=== PATIENT | male | born 1970 | race Caucasian/White ===

== ENCOUNTER 2016-06-01 12:43 | Inpatient (IN) | payer OTHER ==
[2016-06-01 14:01] VITALS: BMI 23.4
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
[2016-06-01] MEDS ORDERED: METHADONE HCL 10 MG TABLET (FOR DETOX USE ONLY) PO ONE ×2 (15:24→23:00)
[2016-06-01] MEDS ORDERED: MAGNESIUM CITRATE 300 ML BOTTLE PO PRN (15:24)
[2016-06-01] MEDS ORDERED: LOPERAMIDE HCL 2 MG CAPSULE PO PRN (15:24)
[2016-06-01] MEDS ORDERED: MENTHOL/PHENOL 1 EACH UD MM PRN (15:24)
[2016-06-01] MEDS ORDERED: guaiFENesin/D-METHORPHAN HB 10 ML UNIT-DOSE CUPS PO PRN (15:24)
[2016-06-01] MEDS ORDERED: MAGNESIUM HYDROX 2400MG/30ML ORAL SUSPENSION 30 ML CUP PO PRN (15:24)
[2016-06-01] MEDS ORDERED: MAG HYDROX/AL HYDROX/SIMETH 30 ML UNIT-DOSE CUP PO PRN (15:24)
[2016-06-01] MEDS: diazePAM 5 MG TABLET PO PRN ×2 (16:58→22:04)
[2016-06-01 17:47] LABS: URINE APPEARANCE CLEAR; URINE BILIRUBIN NEGATIVE (NEGATIVE); URINE BLOOD NEGATIVE (NEGATIVE); URINE COLOR STRAW; URINE GLUCOSE (UA) NEGATIVE (NEGATIVE); URINE KETONE NEGATIVE (NEGATIVE); URINE LEUK ESTERASE NEGATIVE (NEGATIVE); URINE NITRITE NEGATIVE (NEGATIVE); URINE PROTEIN NEGATIVE (NEGATIVE); URINE UROBILINOGEN NEGATIVE E.U./dl (0.2-1.0)
[2016-06-01] MEDS: THIAMINE HCL 100 MG TABLET (FP) PO SCH (22:04)
[2016-06-02] MEDS: hydrOXYzine PAMOATE 50 MG CAPSULE (FP) PO PRN ×2 (00:39→05:28)
[2016-06-02] MEDS: diazePAM 5 MG TABLET PO PRN ×4 (02:54→22:09)
[2016-06-02] MEDS ORDERED: METHADONE HCL 10 MG TABLET (FOR DETOX USE ONLY) PO ONE (10:00)
[2016-06-02 10:03] LABS: MCH 29.9 pg (25.7-33.7); MCHC 33.7 g/dl (32.0-35.9); MEAN CELL VOLUME 88.9 fl (80-96); MEAN PLT VOLUME 7.5 fl (7.5-11.1); PLATELET COUNT 234 K/MM3 (134-434); RDW 13.6 % (11.9-15.9); WHITE BLOOD COUNT 5.6 K/mm3 (4.0-10.0)
[2016-06-02] MEDS: PRENATAL VITAMINS W/ FOLIC ACID TABLET (FP) PO SCH (10:03)
[2016-06-02 10:16] LABS: SGOT/AST 11 U/L (15-37); SGPT/ALT 17 U/L (12-78)
[2016-06-02 10:21] LABS: ALBUMIN 3.4 g/dl (3.4-5.0); ALK PHOS 54 U/L (45-117); ANION GAP 4 (8-16); BILIRUBIN,TOTAL 0.2 mg/dL (0.2-1.0); CALCIUM 8.6 mg/dL (8.5-10.1); CO2 33 mmol/L (21-32); CREATININE 0.9 mg/dL (0.7-1.3); GLUCOSE,RANDOM 112 mg/dL (74-106); TOT PROT 5.7 g/dl (6.4-8.2)
[2016-06-02 10:51] LABS: HIV 1 & 2 AB NEGATIVE; HIV 1 AGp24 NEGATIVE
--- NOTE | 2016-06-02 12:10 | PN ---
BHS COWS - Scale Resting Pulse: 1= ME 81-100 Sweatin=Flushed/Facial Moisture Restless Observation: 1= Difficult to Sit Still Pupil Size: 0= Normal to Room Light Bone or Joint Aches: 2= Severe Diffuse Aches Runny Nose/ Eye Tearin= Runny Nose/Eyes GI Upset > 30mins: 2= Nausea/Diarrhea Tremor Observation of Outstretched Hands: 2= Slight Tremor Visible Yawning Observation: 1= 1-2x During Session Anxiety or Irritability: 2=Irritable/Anxious Goose Flesh Skin: 0=Smooth Skin COWS Score: 15 BHS Progress Note (SOAP) Subjective: Anxiety,sweating,interrupted sleep,restless,muscle aches/spasm Objective: 06/02/16 12:09 Last Vital Signs Temp Pulse Resp BP Pulse Ox 95.7 F L 82 18 135/67 06/02/16 09:50 06/02/16 09:50 06/02/16 09:50 06/02/16 09:50 Laboratory Tests 06/01/16 06/02/16 06/02/16 13:24 06:00 07:00 WBC 5.6 RBC 4.57 Hgb 13.7 Hct 40.6 MCV 88.9 MCHC 33.7 RDW 13.6 Plt Count 234 MPV 7.5 Sodium Potassium Chloride Carbon Dioxide Anion Gap BUN Creatinine Creat Clearance w eGFR Random Glucose Calcium Total Bilirubin AST ALT Alkaline Phosphatase Total Protein Albumin Urine Color Straw Urine Appearance Clear Urine pH 7.0 Ur Specific [place] 1.017 Urine Protein Negative Urine Glucose (UA) Negative Urine Ketones Negative Urine Blood Negative Urine Nitrite Negative Urine Bilirubin Negative Urine Urobilinogen Negative Ur Leukocyte Esterase Negative RPR Titer HIV 1&2 Antibody Screen Negative HIV P24 Antigen Negative 06/02/16 06/02/16 07:00 07:00 WBC RBC Hgb Hct MCV MCHC RDW Plt Count MPV Sodium 140 Potassium 4.1 Chloride 103 Carbon Dioxide 33 H Anion Gap 4 L BUN 16 Creatinine 0.9 Creat Clearance w eGFR > 60 Random Glucose 112 H Calcium 8.6 Total Bilirubin 0.2 AST 11 L ALT 17 Alkaline Phosphatase 54 Total Protein 5.7 L Albumin 3.4 Urine Color Urine Appearance Urine pH Ur Specific [place] Urine Protein Urine Glucose (UA) Urine Ketones Urine Blood Urine Nitrite Urine Bilirubin Urine Urobilinogen Ur Leukocyte Esterase RPR Titer Nonreactive HIV 1&2 Antibody Screen HIV P24 Antigen labs noted Assessment: 06/02/16 12:09 Withdrawal sx. Plan: Continue detox
[2016-06-02] MEDS: THIAMINE HCL 100 MG TABLET (FP) PO SCH (22:09)
[2016-06-03] MEDS: diazePAM 5 MG TABLET PO PRN ×5 (02:13→22:04)
[2016-06-03] MEDS: hydrOXYzine PAMOATE 50 MG CAPSULE (FP) PO PRN (05:47)
--- NOTE | 2016-06-03 09:51 | CONSULT ---
[facility] Psychiatric Consult - Data Date of interview: 06/03/16 Admission source: [facility] Identifying data: Patient refuses to talk to this creative services writer.Uncooperative and verbally abusive.Psychiatric interview cannot be conducted.
[2016-06-03] MEDS ORDERED: METHADONE HCL 5 MG TABLET (FOR DETOX USE ONLY) PO ONE (10:00)
[2016-06-03] MEDS: PRENATAL VITAMINS W/ FOLIC ACID TABLET (FP) PO SCH (10:06)
--- NOTE | 2016-06-03 10:18 | PN ---
[facility] CIWA - CIWA Score Nausea/Vomitin-No Nausea/No Vomiting Muscle Tremors: 3 Anxiety: 5 Agitation: 4-Moderately Restless Paroxysmal Sweats: 1-Minimal Palms Moist Orientation: 0-Oriented Tacttile Disturbances: 3-Moderate Itch/Numb/Burn Auditory Disturbances: 0-None Visual Disturbances: 0-None Headache: 1-Very Mild CIWA-Ar Total Score: 17 BHS Progress Note (SOAP) Subjective: ANXIETY,IRRITABILITY,BODY ACHES,INTERMITTENT SLEEP. Objective: 06/03/16 10:17 Vital Signs Temperature 96 F L 06/03/16 09:53 Pulse Rate 78 06/03/16 09:53 Respiratory Rate 20 06/03/16 09:53 Blood Pressure 133/92 06/03/16 09:53 O2 Sat by Pulse Oximetry (%) Laboratory Last Values WBC 5.6 K/mm3 (4.0-10.0) 06/02/16 07:00 RBC 4.57 M/mm3 (4.00-5.60) 06/02/16 07:00 Hgb 13.7 GM/dL (11.7-16.9) 06/02/16 07:00 Hct 40.6 % (35.4-49) 06/02/16 07:00 MCV 88.9 fl (80-96) 06/02/16 07:00 MCHC 33.7 g/dl (32.0-35.9) 06/02/16 07:00 RDW 13.6 % (11.9-15.9) 06/02/16 07:00 Plt Count 234 K/MM3 (134-434) 06/02/16 07:00 MPV 7.5 fl (7.5-11.1) 06/02/16 07:00 Sickle Cell Screen Negative (NEGATIVE) 06/02/16 06:00 Sodium 140 mmol/L (136-145) 06/02/16 07:00 Potassium 4.1 mmol/L (3.5-5.1) 06/02/16 07:00 Chloride 103 mmol/L (98-107) 06/02/16 07:00 Carbon Dioxide 33 mmol/L (21-32) H 06/02/16 07:00 Anion Gap 4 (8-16) L 06/02/16 07:00 BUN 16 mg/dL (7-18) 06/02/16 07:00 Creatinine 0.9 mg/dL (0.7-1.3) 06/02/16 07:00 Creat Clearance w eGFR > 60 (>60) 06/02/16 07:00 Random Glucose 112 mg/dL (74-106) H 06/02/16 07:00 Calcium 8.6 mg/dL (8.5-10.1) 06/02/16 07:00 Total Bilirubin 0.2 mg/dL (0.2-1.0) 06/02/16 07:00 AST 11 U/L (15-37) L 06/02/16 07:00 ALT 17 U/L (12-78) 06/02/16 07:00 Alkaline Phosphatase 54 U/L (45-117) 06/02/16 07:00 Total Protein 5.7 g/dl (6.4-8.2) L 06/02/16 07:00 Albumin 3.4 g/dl (3.4-5.0) 06/02/16 07:00 Urine Color Straw 06/01/16 13:24 Urine Appearance Clear 06/01/16 13:24 Urine pH 7.0 (5.0-8.0) 06/01/16 13:24 Ur Specific [place] 1.017 (1.001-1.035) 06/01/16 13:24 Urine Protein Negative (NEGATIVE) 06/01/16 13:24 Urine Glucose (UA) Negative (NEGATIVE) 06/01/16 13:24 Urine Ketones Negative (NEGATIVE) 06/01/16 13:24 Urine Blood Negative (NEGATIVE) 06/01/16 13:24 Urine Nitrite Negative (NEGATIVE) 06/01/16 13:24 Urine Bilirubin Negative (NEGATIVE) 06/01/16 13:24 Urine Urobilinogen Negative E.U./dl (0.2-1.0) 06/01/16 13:24 Ur Leukocyte Esterase Negative (NEGATIVE) 06/01/16 13:24 RPR Titer Nonreactive (NONREACTIVE) 06/02/16 07:00 Hepatitis C Antibody 0.1 s/co ratio (0.0-0.9) 06/01/16 07:00 HIV 1&2 Antibody Screen Negative 06/02/16 06:00 HIV P24 Antigen Negative 06/02/16 06:00 Assessment: 06/03/16 10:18 WITHDRAWAL SX Plan: CONTINUE DETOX
--- NOTE | 2016-06-03 15:35 | EKG ---
Test Reason : Blood Pressure : / mmHG Vent. Rate : 056 BPM Atrial Rate : 056 BPM P-R Int : 190 ms QRS Dur : 080 ms QT Int : 404 ms P-R-T Axes : 041 050 062 degrees QTc Int : 389 ms SINUS BRADYCARDIA SEPTAL INFARCT , AGE UNDETERMINED ABNORMAL ECG NO PREVIOUS ECGS AVAILABLE Confirmed by KANDY FERMIN MD ([id number]) on 06/03/2016 3:35:24 PM Referred By: Confirmed By:KANDY FERMIN MD
[2016-06-03] MEDS: THIAMINE HCL 100 MG TABLET (FP) PO SCH (22:04)
[2016-06-04] MEDS: hydrOXYzine PAMOATE 50 MG CAPSULE (FP) PO PRN ×2 (00:49→18:00)
[2016-06-04] MEDS: diazePAM 5 MG TABLET PO PRN ×3 (02:08→10:10)
[2016-06-04] MEDS ORDERED: METHADONE HCL 5 MG TABLET (FOR DETOX USE ONLY) PO ONE (10:00)
[2016-06-04] MEDS: PRENATAL VITAMINS W/ FOLIC ACID TABLET (FP) PO SCH (10:10)
--- NOTE | 2016-06-04 11:28 | PN ---
BHS Progress Note (SOAP) Subjective: IRRITABILITY, ANXIETY,SWEATS. Objective: 06/04/16 11:26 Vital Signs Temperature 97.0 F L 06/04/16 06:01 Pulse Rate 70 06/04/16 06:01 Respiratory Rate 18 06/04/16 06:01 Blood Pressure 131/89 06/04/16 06:01 O2 Sat by Pulse Oximetry (%) Assessment: 06/04/16 11:26 WITHDRAWAL SX Plan: CONTINUE DETOX
[2016-06-04] MEDS ORDERED: COLLOIDAL OATMEAL 1 BAR EACH TP SCH (14:30)
[2016-06-04] MEDS ORDERED: BACITRACIN 30 GM TUBE TOPICAL OINTMENT TP SCH (22:00)
[2016-06-04] MEDS ORDERED: ZOLPIDEM TARTRATE 5 MG TABLET PO ONE (22:37)
[2016-06-04] MEDS ORDERED: NITROGLYCERIN SUBLINGUAL 1/150 0.4 MG TAB SL ONE (22:37)
[2016-06-04] MEDS ORDERED: SIMETHICONE 80 MG TAB.CHEW (FP) PO PRN (22:38)
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
[2016-06-04] MEDS ORDERED: ZOLPIDEM TARTRATE 5 MG TABLET ONE ×2 (22:59→23:08)
[2016-06-04] MEDS: BACITRACIN 0.9 GM PACKET TP SCH (23:06)
[2016-06-04] MEDS: THIAMINE HCL 100 MG TABLET (FP) PO SCH (23:08)
[2016-06-05] MEDS: hydrOXYzine PAMOATE 50 MG CAPSULE (FP) PO PRN (03:39)
[2016-06-05] MEDS ORDERED: cloNIDine HCL 0.1 MG TABLET PO PRN (06:29)
[2016-06-05 09:15] VITALS: BP 142/97; PULSE 82; TEMP 95.3
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
[2016-06-05] MEDS ORDERED: METHADONE HCL 10 MG TABLET (FOR DETOX USE ONLY) PO ONE (10:00)
[2016-06-05] MEDS ORDERED: AMITRIPTYLINE HCL 25 MG TABLET (FP) PO SCH (10:00)
--- NOTE | 2016-06-05 10:13 | PN ---
[facility] Progress Note (SOAP) Subjective: ANXIETY,SWEATS,INTERMITTENT SLEEP. NO C/O PAIN OR SOB. Objective: 06/05/16 10:10 Vital Signs Temperature 95.3 F L 06/05/16 09:15 Pulse Rate 82 06/05/16 09:15 Respiratory Rate 18 06/05/16 09:15 Blood Pressure 142/97 06/05/16 09:15 O2 Sat by Pulse Oximetry (%) Assessment: 06/05/16 10:10 WITHDRAWAL SX Plan: CONTINUE DETOX
[2016-06-05] MEDS: PRENATAL VITAMINS W/ FOLIC ACID TABLET (FP) PO SCH (10:14)
[2016-06-05] MEDS: BACITRACIN 0.9 GM PACKET TP SCH (10:14)
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
--- NOTE | 2016-06-05 14:16 | EKG ---
Test Reason : Blood Pressure : / mmHG Vent. Rate : 076 BPM Atrial Rate : 076 BPM P-R Int : 162 ms QRS Dur : 080 ms QT Int : 378 ms P-R-T Axes : 030 046 050 degrees QTc Int : 425 ms POOR DATA QUALITY, INTERPRETATION MAY BE ADVERSELY AFFECTED NORMAL SINUS RHYTHM NONSPECIFIC T WAVE ABNORMALITY ABNORMAL ECG WHEN COMPARED WITH ECG OF 01-JUN-2016 17:07, CRITERIA FOR SEPTAL INFARCT ARE NO LONGER PRESENT NONSPECIFIC T WAVE ABNORMALITY NOW EVIDENT IN LATERAL LEADS Confirmed by NATALIE KHOURY MD ([id number]) on 06/05/2016 2:16:12 PM Referred By: Confirmed By:NATALIE KHOURY MD
[2016-06-05] MEDS ORDERED: DOCUSATE SODIUM 100 MG CAPSULE (FP) PO SCH (22:00)
[2016-06-06] MEDS ORDERED: METHADONE HCL 5 MG TABLET (FOR DETOX USE ONLY) PO ONE (06:00)
--- NOTE | 2016-06-06 15:23 | EKG ---
Test Reason : Blood Pressure : / mmHG Vent. Rate : 065 BPM Atrial Rate : 065 BPM P-R Int : 172 ms QRS Dur : 082 ms QT Int : 396 ms P-R-T Axes : 032 057 054 degrees QTc Int : 411 ms NORMAL SINUS RHYTHM NORMAL ECG WHEN COMPARED WITH ECG OF 04-JUN-2016 21:53, NONSPECIFIC T WAVE ABNORMALITY NO LONGER EVIDENT IN LATERAL LEADS Confirmed by KIAH CHOWDHURY MD ([id number]) on 06/06/2016 3:23:28 PM Referred By: Confirmed By:KIAH CHOWDHURY MD
== END 2016-06-05 11:00 | disposition home or self-care (01) | DRG 773 ==
LOC: YASAS 12:43 → Y3N 14:35
PROVIDERS: ADMIT Internal Medicine; ATTEND Internal Medicine
PROC: HZ2ZZZZ Detoxification Services for Substance Abuse Treatment (ICD-10-PCS; principal; 2016-06-05)
DX: F11.23 Opioid dependence with withdrawal (principal); F12.20 Cannabis dependence, uncomplicated; F17.210 Nicotine dependence, cigarettes, uncomplicated; F19.24 Other psychoactive substance dependence with psychoactive substance-induced mood disorder; Z87.19 Personal history of other diseases of the digestive system; Z98.890 Other specified postprocedural states; Z87.828 Personal history of other (healed) physical injury and trauma
CPT/HCPCS: 36415; 80053; 81003; 85027; 85660; 86593; 87389; 93005; 93010

== ENCOUNTER 2016-11-15 19:32 | Inpatient (IN) | payer OTHER ==
[2016-11-15 21:43] VITALS: BMI 23.6
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
[2016-11-15] MEDS ORDERED: MAG HYDROX/AL HYDROX/SIMETH 30 ML UNIT-DOSE CUP PO PRN (23:44)
[2016-11-15] MEDS ORDERED: MAGNESIUM CITRATE 300 ML BOTTLE PO PRN (23:44)
[2016-11-15] MEDS ORDERED: guaiFENesin/D-METHORPHAN HB 10 ML UNIT-DOSE CUPS PO PRN (23:44)
[2016-11-15] MEDS ORDERED: MAGNESIUM HYDROX 2400MG/30ML ORAL SUSPENSION 30 ML CUP PO PRN (23:44)
[2016-11-15] MEDS ORDERED: MENTHOL/PHENOL 1 EACH UD MM PRN (23:44)
[2016-11-15] MEDS ORDERED: P-EPHED 60MG/TRIPROLIDI 2.5MG TABLET PO PRN (23:44)
[2016-11-15] MEDS ORDERED: LOPERAMIDE HCL 2 MG CAPSULE PO PRN (23:44)
[2016-11-16] MEDS ORDERED: METHADONE HCL 10 MG TABLET (FOR DETOX USE ONLY) PO ONE ×3 (01:20→23:00)
[2016-11-16] MEDS: diazePAM 5 MG TABLET PO PRN ×4 (01:49→20:50)
[2016-11-16] MEDS: PRENATAL VITAMINS W/ FOLIC ACID TABLET (FP) PO SCH (10:10)
[2016-11-16 10:31] LABS: ALBUMIN 3.4 g/dl (3.4-5.0); ANION GAP 8 (8-16); CALCIUM 8.6 mg/dL (8.5-10.1); CO2 31 mmol/L (21-32); GLUCOSE,RANDOM 97 mg/dL (74-106); SGOT/AST 14 U/L (15-37); SGPT/ALT 22 U/L (12-78)
[2016-11-16 10:33] LABS: ALK PHOS 69 U/L (45-117); BILIRUBIN,TOTAL 0.8 mg/dL (0.2-1.0); TOT PROT 6.1 g/dl (6.4-8.2)
[2016-11-16 10:48] LABS: MCH 29.1 pg (25.7-33.7); MCHC 33.4 g/dl (32.0-35.9); MEAN CELL VOLUME 87.2 fl (80-96); MEAN PLT VOLUME 7.8 fl (7.5-11.1); PLATELET COUNT 237 K/MM3 (134-434); RDW 13.7 % (11.9-15.9); WHITE BLOOD COUNT 4.9 K/mm3 (4.0-10.0)
[2016-11-16 11:53] LABS: URINE APPEARANCE CLEAR; URINE BILIRUBIN NEGATIVE (NEGATIVE); URINE BLOOD NEGATIVE (NEGATIVE); URINE COLOR LT. YELLOW; URINE GLUCOSE (UA) NEGATIVE (NEGATIVE); URINE KETONE NEGATIVE (NEGATIVE); URINE LEUK ESTERASE NEGATIVE (NEGATIVE); URINE NITRITE NEGATIVE (NEGATIVE); URINE PROTEIN TRACE (NEGATIVE); URINE UROBILINOGEN 0.2 mg/dL (0.2-1.0)
--- NOTE | 2016-11-16 13:52 | EKG ---
Test Reason : Blood Pressure : / mmHG Vent. Rate : 053 BPM Atrial Rate : 053 BPM P-R Int : 206 ms QRS Dur : 088 ms QT Int : 438 ms P-R-T Axes : 077 055 064 degrees QTc Int : 410 ms SINUS BRADYCARDIA OTHERWISE NORMAL ECG WHEN COMPARED WITH ECG OF 05-JUN-2016 06:20, NO SIGNIFICANT CHANGE WAS FOUND Confirmed by ROBERT MARTINEZ, CAROL ([id number]) on 11/16/2016 1:52:17 PM Referred By: Cheng Valerio Confirmed By:CAROL JONES MD
--- NOTE | 2016-11-16 15:53 | PN ---
S COWS - Scale Resting Pulse: 0= [place] 80 or Below Sweatin=Flushed/Facial Moisture Restless Observation: 3= Extraneous Movement Pupil Size: 1= Pupils >than Normal Bone or Joint Aches: 2= Severe Diffuse Aches Runny Nose/ Eye Tearin= Runny Nose/Eyes GI Upset > 30mins: 1= Stomach Cramp Tremor Observation of Outstretched Hands: 2= Slight Tremor Visible Yawning Observation: 1= 1-2x During Session Anxiety or Irritability: 2=Irritable/Anxious Goose Flesh Skin: 0=Smooth Skin COWS Score: 16 S Progress Note (SOAP) Subjective: Nausea, stomach cramps, sweating, interrupted sleep, tremor, chills Objective: 11/16/16 15:49 Last Vital Signs Temp Pulse Resp BP Pulse Ox 95.8 F L 66 18 112/76 11/16/16 14:23 11/16/16 14:23 11/16/16 14:23 11/16/16 14:23 Laboratory Tests 11/16/16 11/16/16 11/16/16 08:00 08:00 08:00 WBC 4.9 RBC 4.51 Hgb 13.1 Hct 39.4 MCV 87.2 MCH 29.1 MCHC 33.4 RDW 13.7 Plt Count 237 MPV 7.8 Sodium 139 Potassium 4.1 Chloride 100 Carbon Dioxide 31 Anion Gap 8 BUN 14 Creatinine 1.0 Creat Clearance w eGFR > 60 Random Glucose 97 Calcium 8.6 Total Bilirubin 0.8 D AST 14 L D ALT 22 D Alkaline Phosphatase 69 D Total Protein 6.1 L Albumin 3.4 Urine Color Urine Appearance Urine pH Urine Protein Urine Glucose (UA) Urine Ketones Urine Blood Urine Nitrite Urine Bilirubin Urine Urobilinogen Ur Leukocyte Esterase RPR Titer Nonreactive 11/16/16 09:20 WBC RBC Hgb Hct MCV MCH MCHC RDW Plt Count MPV Sodium Potassium Chloride Carbon Dioxide Anion Gap BUN Creatinine Creat Clearance w eGFR Random Glucose Calcium Total Bilirubin AST ALT Alkaline Phosphatase Total Protein Albumin Urine Color Lt. yellow Urine Appearance Clear Urine pH 6.0 Urine Protein Trace H Urine Glucose (UA) Negative Urine Ketones Negative Urine Blood Negative Urine Nitrite Negative Urine Bilirubin Negative Urine Urobilinogen 0.2 Ur Leukocyte Esterase Negative RPR Titer Labs noted Assessment: 11/16/16 15:50 Withdrawal symptoms Plan: Continue detox Encouraged to drink lots of water
[2016-11-16] MEDS: THIAMINE HCL 100 MG TABLET (FP) PO SCH (22:18)
[2016-11-17] MEDS: diazePAM 5 MG TABLET PO PRN ×6 (00:35→20:25)
[2016-11-17] MEDS ORDERED: METHADONE HCL 10 MG TABLET (FOR DETOX USE ONLY) PO ONE (10:00)
[2016-11-17] MEDS: PRENATAL VITAMINS W/ FOLIC ACID TABLET (FP) PO SCH (10:16)
[2016-11-17] MEDS ORDERED: COLLOIDAL OATMEAL 1 BAR EACH TP PRN (10:28)
--- NOTE | 2016-11-17 10:31 | PN ---
[facility] COWS - Scale Resting Pulse: 0= [place] 80 or Below Sweatin=Flushed/Facial Moisture Restless Observation: 1= Difficult to Sit Still Pupil Size: 0= Normal to Room Light Bone or Joint Aches: 1= Mild Discomfort Runny Nose/ Eye Tearin= Runny Nose/Eyes GI Upset > 30mins: 2= Nausea/Diarrhea Tremor Observation of Outstretched Hands: 2= Slight Tremor Visible Yawning Observation: 1= 1-2x During Session Anxiety or Irritability: 2=Irritable/Anxious Goose Flesh Skin: 0=Smooth Skin COWS Score: 13 [facility]HS Progress Note (SOAP) Subjective: Anxiety,sweating,interrupted sleep,restless,body aches. Objective: 11/17/16 10:30 Vital Signs - 8 hr 11/17/16 11/17/16 11/17/16 03:29 06:31 09:37 Temperature 96.3 F L 97.1 F L Pulse Rate 67 80 Respiratory 18 18 18 Rate Blood Pressure 109/72 121/84 Laboratory Tests 11/16/16 11/16/16 11/16/16 08:00 08:00 08:00 WBC 4.9 RBC 4.51 Hgb 13.1 Hct 39.4 MCV 87.2 MCH 29.1 MCHC 33.4 RDW 13.7 Plt Count 237 MPV 7.8 Sodium 139 Potassium 4.1 Chloride 100 Carbon Dioxide 31 Anion Gap 8 BUN 14 Creatinine 1.0 Creat Clearance w eGFR > 60 Random Glucose 97 Calcium 8.6 Total Bilirubin 0.8 D AST 14 L D ALT 22 D Alkaline Phosphatase 69 D Total Protein 6.1 L Albumin 3.4 Urine Color Urine Appearance Urine pH Ur Specific [place] Urine Protein Urine Glucose (UA) Urine Ketones Urine Blood Urine Nitrite Urine Bilirubin Urine Urobilinogen Ur Leukocyte Esterase RPR Titer Nonreactive 11/16/16 09:20 WBC RBC Hgb Hct MCV MCH MCHC RDW Plt Count MPV Sodium Potassium Chloride Carbon Dioxide Anion Gap BUN Creatinine Creat Clearance w eGFR Random Glucose Calcium Total Bilirubin AST ALT Alkaline Phosphatase Total Protein Albumin Urine Color Lt. yellow Urine Appearance Clear Urine pH 6.0 Ur Specific [place] 1.025 Urine Protein Trace H Urine Glucose (UA) Negative Urine Ketones Negative Urine Blood Negative Urine Nitrite Negative Urine Bilirubin Negative Urine Urobilinogen 0.2 Ur Leukocyte Esterase Negative RPR Titer labs noted Assessment: 11/17/16 10:31 Withdrawal sx. Plan: continue detox
[2016-11-17] MEDS: FLUOCINONIDE 0.05% TOP OINT (60 GM TUBE) TP SCH ×2 (11:15→22:23)
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
[2016-11-17] MEDS: THIAMINE HCL 100 MG TABLET (FP) PO SCH (22:23)
[2016-11-17] MEDS: ZOLPIDEM TARTRATE 10 MG TABLET (PARK CARE ONLY) PO PRN (22:23)
[2016-11-18] MEDS: diazePAM 5 MG TABLET PO PRN ×6 (00:29→23:11)
[2016-11-18] MEDS ORDERED: CYCLOBENZAPRINE HCL 10 MG TABLET (FP) PO ONE (00:36)
--- NOTE | 2016-11-18 00:54 | PN ---
S Progress Note Note: superficial abrasion of left big toe and second toe ,injury by the metal part at the edge of the door,ambulation with no difficulty no bleeding on examination movement of toes no limitation no swelling treatment clean with nss then bacitracin ointment dressing then bid flexeril 10 mgs po now then tid prn close monitoring
[2016-11-18] MEDS: BACITRACIN 15 GM TUBE TOPICAL OINTMENT TP SCH ×3 (01:03→22:24)
[2016-11-18] MEDS ORDERED: METHADONE HCL 5 MG TABLET (FOR DETOX USE ONLY) PO ONE (10:00)
[2016-11-18] MEDS: PRENATAL VITAMINS W/ FOLIC ACID TABLET (FP) PO SCH (10:19)
[2016-11-18] MEDS: FLUOCINONIDE 0.05% TOP OINT (60 GM TUBE) TP SCH ×2 (10:19→22:25)
--- NOTE | 2016-11-18 12:22 | PN ---
S Progress Note (SOAP) Subjective: Restless,sweating,anxiety Objective: 11/18/16 12:21 Vital Signs - 8 hr 11/18/16 09:57 Temperature 96.9 F L Pulse Rate 77 Respiratory 20 Rate Blood Pressure 130/90 Laboratory Last Values WBC 4.9 K/mm3 (4.0-10.0) 11/16/16 08:00 RBC 4.51 M/mm3 (4.00-5.60) 11/16/16 08:00 Hgb 13.1 GM/dL (11.7-16.9) 11/16/16 08:00 Hct 39.4 % (35.4-49) 11/16/16 08:00 MCV 87.2 fl (80-96) 11/16/16 08:00 MCH 29.1 pg (25.7-33.7) 11/16/16 08:00 MCHC 33.4 g/dl (32.0-35.9) 11/16/16 08:00 RDW 13.7 % (11.9-15.9) 11/16/16 08:00 Plt Count 237 K/MM3 (134-434) 11/16/16 08:00 MPV 7.8 fl (7.5-11.1) 11/16/16 08:00 Sodium 139 mmol/L (136-145) 11/16/16 08:00 Potassium 4.1 mmol/L (3.5-5.1) 11/16/16 08:00 Chloride 100 mmol/L (98-107) 11/16/16 08:00 Carbon Dioxide 31 mmol/L (21-32) 11/16/16 08:00 Anion Gap 8 (8-16) 11/16/16 08:00 BUN 14 mg/dL (7-18) 11/16/16 08:00 Creatinine 1.0 mg/dL (0.7-1.3) 11/16/16 08:00 Creat Clearance w eGFR > 60 (>60) 11/16/16 08:00 Random Glucose 97 mg/dL (74-106) 11/16/16 08:00 Calcium 8.6 mg/dL (8.5-10.1) 11/16/16 08:00 Total Bilirubin 0.8 mg/dL (0.2-1.0) D 11/16/16 08:00 AST 14 U/L (15-37) L D 11/16/16 08:00 ALT 22 U/L (12-78) D 11/16/16 08:00 Alkaline Phosphatase 69 U/L (45-117) D 11/16/16 08:00 Total Protein 6.1 g/dl (6.4-8.2) L 11/16/16 08:00 Albumin 3.4 g/dl (3.4-5.0) 11/16/16 08:00 Urine Color Lt. yellow 11/16/16 09:20 Urine Appearance Clear 11/16/16 09:20 Urine pH 6.0 (5.0-8.0) 11/16/16 09:20 Ur Specific [place] 1.025 (1.005-1.025) 11/16/16 09:20 Urine Protein Trace (NEGATIVE) H 11/16/16 09:20 Urine Glucose (UA) Negative (NEGATIVE) 11/16/16 09:20 Urine Ketones Negative (NEGATIVE) 11/16/16 09:20 Urine Blood Negative (NEGATIVE) 11/16/16 09:20 Urine Nitrite Negative (NEGATIVE) 11/16/16 09:20 Urine Bilirubin Negative (NEGATIVE) 11/16/16 09:20 Urine Urobilinogen 0.2 mg/dL (0.2-1.0) 11/16/16 09:20 Ur Leukocyte Esterase Negative (NEGATIVE) 11/16/16 09:20 RPR Titer Nonreactive (NONREACTIVE) 11/16/16 08:00 labs noted Assessment: 11/18/16 12:21 Withdrawal sx. Plan: Continue detox
[2016-11-18] MEDS: CYCLOBENZAPRINE HCL 10 MG TABLET (FP) PO PRN (16:32)
[2016-11-18] MEDS ORDERED: BACITRACIN 0.9 GM PACKET ONE (21:33)
[2016-11-18] MEDS: THIAMINE HCL 100 MG TABLET (FP) PO SCH (22:24)
[2016-11-18] MEDS: ZOLPIDEM TARTRATE 10 MG TABLET (PARK CARE ONLY) PO PRN (22:26)
[2016-11-19] MEDS: CYCLOBENZAPRINE HCL 10 MG TABLET (FP) PO PRN (00:56)
[2016-11-19] MEDS ORDERED: METHADONE HCL 5 MG TABLET (FOR DETOX USE ONLY) PO ONE (10:00)
[2016-11-19] MEDS: PRENATAL VITAMINS W/ FOLIC ACID TABLET (FP) PO SCH (10:30)
[2016-11-19] MEDS: FLUOCINONIDE 0.05% TOP OINT (60 GM TUBE) TP SCH ×2 (10:30→21:23)
[2016-11-19] MEDS: BACITRACIN 15 GM TUBE TOPICAL OINTMENT TP SCH (10:31)
--- NOTE | 2016-11-19 12:18 | PN ---
[facility] Progress Note (SOAP) Subjective: Interrupted sleep, Body aches, Stomach Cramping, Nausea, H/A, Tremors, Anxious, Sweating. Objective: PT. A & O X 2 (DISORIENTED ABOUT DAY / DATE). PT. OBSERVED AMBULATING ON UNIT. NO ACUTE DISTRESS. 11/19/16 12:16 Vital Signs Temperature 0 F L 11/19/16 09:57 Pulse Rate 81 11/19/16 09:57 Respiratory Rate 18 11/19/16 09:57 Blood Pressure 118/86 11/19/16 09:57 O2 Sat by Pulse Oximetry (%) Laboratory Tests 11/16/16 11/16/16 11/16/16 08:00 08:00 08:00 WBC 4.9 RBC 4.51 Hgb 13.1 Hct 39.4 MCV 87.2 MCH 29.1 MCHC 33.4 RDW 13.7 Plt Count 237 MPV 7.8 Sodium 139 Potassium 4.1 Chloride 100 Carbon Dioxide 31 Anion Gap 8 BUN 14 Creatinine 1.0 Creat Clearance w eGFR > 60 Random Glucose 97 Calcium 8.6 Total Bilirubin 0.8 D AST 14 L D ALT 22 D Alkaline Phosphatase 69 D Total Protein 6.1 L Albumin 3.4 Urine Color Urine Appearance Urine pH Ur Specific [place] Urine Protein Urine Glucose (UA) Urine Ketones Urine Blood Urine Nitrite Urine Bilirubin Urine Urobilinogen Ur Leukocyte Esterase RPR Titer Nonreactive 11/16/16 09:20 WBC RBC Hgb Hct MCV MCH MCHC RDW Plt Count MPV Sodium Potassium Chloride Carbon Dioxide Anion Gap BUN Creatinine Creat Clearance w eGFR Random Glucose Calcium Total Bilirubin AST ALT Alkaline Phosphatase Total Protein Albumin Urine Color Lt. yellow Urine Appearance Clear Urine pH 6.0 Ur Specific [place] 1.025 Urine Protein Trace H Urine Glucose (UA) Negative Urine Ketones Negative Urine Blood Negative Urine Nitrite Negative Urine Bilirubin Negative Urine Urobilinogen 0.2 Ur Leukocyte Esterase Negative RPR Titer LABS NOTED. Assessment: 11/19/16 12:17 WITHDRAWAL SYMPTOMS. Plan: CONTINUE DETOX.
--- NOTE | 2016-11-19 17:17 | PN ---
[facility] Progress Note Note: received nurse reports that the patient wants aveeno soap chart reviewed, patient may receive aveeno soap since 11/17/16
[2016-11-19] MEDS: MINERAL OIL/PETROLAT/WATER TOPICAL CREAM 113 GM JAR TP SCH ×2 (18:30→21:57)
[2016-11-19] MEDS: hydrOXYzine PAMOATE 50 MG CAPSULE (FP) PO PRN (19:37)
[2016-11-19] MEDS: BACITRACIN 0.9 GM PACKET TP SCH (21:23)
[2016-11-19] MEDS: ZOLPIDEM TARTRATE 10 MG TABLET (PARK CARE ONLY) PO PRN (21:23)
[2016-11-19] MEDS: THIAMINE HCL 100 MG TABLET (FP) PO SCH (21:23)
[2016-11-20] MEDS: CYCLOBENZAPRINE HCL 10 MG TABLET (FP) PO PRN (01:48)
[2016-11-20] MEDS: hydrOXYzine PAMOATE 50 MG CAPSULE (FP) PO PRN ×3 (01:48→23:30)
[2016-11-20] MEDS ORDERED: METHADONE HCL 10 MG TABLET (FOR DETOX USE ONLY) PO ONE (10:00)
--- NOTE | 2016-11-20 10:24 | PN ---
[facility] Progress Note (SOAP) Subjective: nausea, sweats, interruped sleep,anxeity, agitation, requesting selenium shampoo for dandruff Objective: 11/20/16 10:22 Laboratory Tests 11/16/16 11/16/16 11/16/16 08:00 08:00 08:00 WBC 4.9 RBC 4.51 Hgb 13.1 Hct 39.4 MCV 87.2 MCH 29.1 MCHC 33.4 RDW 13.7 Plt Count 237 MPV 7.8 Sodium 139 Potassium 4.1 Chloride 100 Carbon Dioxide 31 Anion Gap 8 BUN 14 Creatinine 1.0 Creat Clearance w eGFR > 60 Random Glucose 97 Calcium 8.6 Total Bilirubin 0.8 D AST 14 L D ALT 22 D Alkaline Phosphatase 69 D Total Protein 6.1 L Albumin 3.4 Urine Color Urine Appearance Urine pH Ur Specific [place] Urine Protein Urine Glucose (UA) Urine Ketones Urine Blood Urine Nitrite Urine Bilirubin Urine Urobilinogen Ur Leukocyte Esterase RPR Titer Nonreactive 11/16/16 09:20 WBC RBC Hgb Hct MCV MCH MCHC RDW Plt Count MPV Sodium Potassium Chloride Carbon Dioxide Anion Gap BUN Creatinine Creat Clearance w eGFR Random Glucose Calcium Total Bilirubin AST ALT Alkaline Phosphatase Total Protein Albumin Urine Color Lt. yellow Urine Appearance Clear Urine pH 6.0 Ur Specific [place] 1.025 Urine Protein Trace H Urine Glucose (UA) Negative Urine Ketones Negative Urine Blood Negative Urine Nitrite Negative Urine Bilirubin Negative Urine Urobilinogen 0.2 Ur Leukocyte Esterase Negative RPR Titer Assessment: 11/20/16 10:23 withdrawal sx, hypoalbuminemia, malnutrition secondary to substance use, elevate ap liver disease secondary to substance use Plan: cont detox, selenium shampoo ordered, fludis, encoruage ambualtion
[2016-11-20] MEDS: BACITRACIN 0.9 GM PACKET TP SCH ×2 (11:16→23:04)
[2016-11-20] MEDS: SELENIUM SULFIDE 2.5% LOTION 4 OZ. TP SCH (11:16)
[2016-11-20] MEDS: FLUOCINONIDE 0.05% TOP OINT (60 GM TUBE) TP SCH ×2 (11:16→23:09)
[2016-11-20] MEDS: PRENATAL VITAMINS W/ FOLIC ACID TABLET (FP) PO SCH (11:16)
[2016-11-20] MEDS: MINERAL OIL/PETROLAT/WATER TOPICAL CREAM 113 GM JAR TP SCH ×2 (11:16→23:07)
[2016-11-20] MEDS: THIAMINE HCL 100 MG TABLET (FP) PO SCH (23:04)
[2016-11-21] MEDS ORDERED: METHADONE HCL 5 MG TABLET (FOR DETOX USE ONLY) PO ONE (06:00)
[2016-11-21] MEDS: hydrOXYzine PAMOATE 50 MG CAPSULE (FP) PO PRN (06:32)
[2016-11-21 09:48] VITALS: BP 139/89; PULSE 99; TEMP 97.9
--- NOTE | 2016-11-21 10:17 | DS ---
[facility] Detox Discharge Summary Admission Date: 11/15/16 Discharge Date: 11/21/16 - History Present History: Cannabis Dependence, Cocaine Dependence, Opioid Dependence Pertinent Past History: Insomnia - Physical Exam Results Vital Signs: Vital Signs Temperature 97.9 F 11/21/16 09:47 Pulse Rate 99 H 11/21/16 09:47 Respiratory Rate 20 11/21/16 09:47 Blood Pressure 139/89 11/21/16 09:47 O2 Sat by Pulse Oximetry (%) Pertinent Admission Physical Exam Findings: Withdrawal sx. Laboratory Last Values WBC 4.9 K/mm3 (4.0-10.0) 11/16/16 08:00 RBC 4.51 M/mm3 (4.00-5.60) 11/16/16 08:00 Hgb 13.1 GM/dL (11.7-16.9) 11/16/16 08:00 Hct 39.4 % (35.4-49) 11/16/16 08:00 MCV 87.2 fl (80-96) 11/16/16 08:00 MCH 29.1 pg (25.7-33.7) 11/16/16 08:00 MCHC 33.4 g/dl (32.0-35.9) 11/16/16 08:00 RDW 13.7 % (11.9-15.9) 11/16/16 08:00 Plt Count 237 K/MM3 (134-434) 11/16/16 08:00 MPV 7.8 fl (7.5-11.1) 11/16/16 08:00 Sodium 139 mmol/L (136-145) 11/16/16 08:00 Potassium 4.1 mmol/L (3.5-5.1) 11/16/16 08:00 Chloride 100 mmol/L (98-107) 11/16/16 08:00 Carbon Dioxide 31 mmol/L (21-32) 11/16/16 08:00 Anion Gap 8 (8-16) 11/16/16 08:00 BUN 14 mg/dL (7-18) 11/16/16 08:00 Creatinine 1.0 mg/dL (0.7-1.3) 11/16/16 08:00 Creat Clearance w eGFR > 60 (>60) 11/16/16 08:00 Random Glucose 97 mg/dL (74-106) 11/16/16 08:00 Calcium 8.6 mg/dL (8.5-10.1) 11/16/16 08:00 Total Bilirubin 0.8 mg/dL (0.2-1.0) D 11/16/16 08:00 AST 14 U/L (15-37) L D 11/16/16 08:00 ALT 22 U/L (12-78) D 11/16/16 08:00 Alkaline Phosphatase 69 U/L (45-117) D 11/16/16 08:00 Total Protein 6.1 g/dl (6.4-8.2) L 11/16/16 08:00 Albumin 3.4 g/dl (3.4-5.0) 11/16/16 08:00 Urine Color Lt. yellow 11/16/16 09:20 Urine Appearance Clear 11/16/16 09:20 Urine pH 6.0 (5.0-8.0) 11/16/16 09:20 Ur Specific [place] 1.025 (1.005-1.025) 11/16/16 09:20 Urine Protein Trace (NEGATIVE) H 11/16/16 09:20 Urine Glucose (UA) Negative (NEGATIVE) 11/16/16 09:20 Urine Ketones Negative (NEGATIVE) 11/16/16 09:20 Urine Blood Negative (NEGATIVE) 11/16/16 09:20 Urine Nitrite Negative (NEGATIVE) 11/16/16 09:20 Urine Bilirubin Negative (NEGATIVE) 11/16/16 09:20 Urine Urobilinogen 0.2 mg/dL (0.2-1.0) 11/16/16 09:20 Ur Leukocyte Esterase Negative (NEGATIVE) 11/16/16 09:20 RPR Titer Nonreactive (NONREACTIVE) 11/16/16 08:00 labs noted - Treatment Hospital Course: Detox Protocol Followed, Detoxed Safely, Responded well, Discharged Condition Good, Rehab Referral Accepted - Medication Discharge Medications: Ambulatory Orders Amitriptyline HCl [Elavil -] 50 mg PO BID #60 tablet 06/05/16 - Diagnosis (1) Cannabis dependence Current Visit: Yes Status: Acute (2) Cocaine dependence Current Visit: Yes Status: Acute Qualifiers: Substance use status: uncomplicated Qualified Code(s): F14.20 - Cocaine dependence, uncomplicated (3) Drug-induced mood disorder Current Visit: Yes Status: Acute (4) Insomnia Current Visit: Yes Status: Acute (5) Nicotine dependence Current Visit: Yes Status: Acute Qualifiers: Nicotine product type: cigarettes Substance use status: uncomplicated Qualified Code(s): F17.210 - Nicotine dependence, cigarettes, uncomplicated (6) Opioid dependence with withdrawal Current Visit: Yes Status: Acute - AMA Did Patient Leave Against Medical Advice: No
[2016-11-21] MEDS: FLUOCINONIDE 0.05% TOP OINT (60 GM TUBE) TP SCH (11:00)
[2016-11-21] MEDS: MINERAL OIL/PETROLAT/WATER TOPICAL CREAM 113 GM JAR TP SCH (11:00)
[2016-11-21] MEDS: SELENIUM SULFIDE 2.5% LOTION 4 OZ. TP SCH (11:00)
[2016-11-21] MEDS: PRENATAL VITAMINS W/ FOLIC ACID TABLET (FP) PO SCH (11:00)
[2016-11-21] MEDS: BACITRACIN 0.9 GM PACKET TP SCH (11:00)
== END 2016-11-21 10:57 | disposition home or self-care (01) | DRG 773 ==
LOC: YASAS 19:32 → Y3N 22:31
PROVIDERS: ADMIT Internal Medicine; ATTEND Internal Medicine
PROC: HZ2ZZZZ Detoxification Services for Substance Abuse Treatment (ICD-10-PCS; principal; 2016-11-15)
DX: F11.23 Opioid dependence with withdrawal (principal); F14.20 Cocaine dependence, uncomplicated; F12.20 Cannabis dependence, uncomplicated; F17.210 Nicotine dependence, cigarettes, uncomplicated; F19.24 Other psychoactive substance dependence with psychoactive substance-induced mood disorder; G47.00 Insomnia, unspecified; E88.09 Other disorders of plasma-protein metabolism, not elsewhere classified; E46 Unspecified protein-calorie malnutrition; Z68.23 Body mass index [BMI] 23.0-23.9, adult; R74.8 Abnormal levels of other serum enzymes; Z87.828 Personal history of other (healed) physical injury and trauma; Z87.898 Personal history of other specified conditions; Z88.8 Allergy status to other drugs, medicaments and biological substances; S90.412A Abrasion, left great toe, initial encounter; S90.415A Abrasion, left lesser toe(s), initial encounter; W45.8XXA Other foreign body or object entering through skin, initial encounter; Y93.9 Activity, unspecified; Y92.238 Other place in hospital as the place of occurrence of the external cause
CPT/HCPCS: 36415; 80053; 81003; 85027; 86593; 93005; 93010